=== PATIENT | male | born 1990 | race Caucasian/White ===

== ENCOUNTER 2017-01-08 02:05 | Emergency (ER) | payer OTHER ==
[~2017-01-08] VITALS: Ht 180.3 cm; Wt 112.1 kg
[2017-01-08 02:07] VITALS: BP 138/89
[2017-01-08] MEDS ORDERED: BACTRIM,SEPT1 TABLET PO (02:48)
== END 2017-01-08 03:44 | disposition home or self-care (01) ==
LOC: EME 02:05
PROC: 0H9GXZZ Drainage of Left Hand Skin, External Approach (ICD-10-PCS; principal; 2017-01-08)
DX: L03.012 Cellulitis of left finger (principal)
CPT/HCPCS: 99281; 99284; S0020

== ENCOUNTER 2017-03-23 16:28 | Emergency (ER) | payer OTHER ==
[~2017-03-23] VITALS: Ht 180.3 cm; Wt 117.5 kg
[~2017-03-23 16:28] MED LIST: BACTRIM,SEPT1 TABLET PO
[2017-03-23] MEDS ORDERED: MOTRIN800 MG PO (18:12)
[2017-03-23 18:23] VITALS: BP 145/80
== END 2017-03-23 18:24 | disposition home or self-care (01) ==
LOC: EME 16:28
DX: S42.251A Displaced fracture of greater tuberosity of right humerus, initial encounter for closed fracture (principal); X50.0XXA Overexertion from strenuous movement or load, initial encounter
CPT/HCPCS: 73030; 99281; 99284